=== PATIENT | female | born 1970 | race Hispanic/Latino ===

== ENCOUNTER → 2018-05-06 | Outpatient (CLI) | payer BC ==
--- NOTE | 2018-05-06 18:04 | Diagnostic Imaging Report ---
Solid-phase gastric emptying study Reason for examination: 47 F with post-prandial abdominal pin The protocol used for this study is based on the Consensus Recommendations for Gastric Scintigraphy by the [place] [employer] Society and the Society of Nuclear Medicine. Clinical information: The patient is not diabetic. The patient has not had prior gastrointestinal surgery. The patient is not on any medications expected to affect gastric motility. The patient has been fasting for at least 6 hours prior to this exam. Radiopharmaceutical: Tc-99m sulfur colloid 1 mCi Report: The radiopharmaceutical was added to 1/2 cup egg whites that were then prepared and served with 2 pieces of white bread toasted, 30 grams of jam and 4 ounces of water. The patient took the meal orally without difficulty. Images were obtained of the abdomen in the anterior and posterior projections at 10 minutes post the meal and at 1, 2, 3, and 4 hours. Uptake was determined from the geometric mean of the anterior and posterior counts and the counts were corrected for decay of the radiolabel. The percent gastric retention of the labeled meal at: 1 hour was 65% (normal 30-90%) 2 hours was 45% (normal <60%) 3 hours was 28% (normal <30%) 4 hours was 2% (normal <10%) Impression: Normal gastric emptying pattern. The findings do not support the clinical diagnosis of gastroparesis. Signed by: Dr. Alicja Gonzales M.D. on 05/06/2018 6:01 PM
== END ==
LOC: NM 07:44
PROVIDERS: ATTEND Internal Medicine Gastroenterology
DX: R10.12 Left upper quadrant pain (principal); R14.0 Abdominal distension (gaseous); I10 Essential (primary) hypertension; E66.9 Obesity, unspecified; Z71.3 Dietary counseling and surveillance
CPT/HCPCS: 78264; A9541

== ENCOUNTER 2020-03-05 22:57 | Emergency (ER) | payer BC, OTHER ==
[~2020-03-05] VITALS: Ht 172.7 cm; Wt 90.7 kg
--- OUTSIDE RECORDS SUMMARY | 2020-03-05 22:59 | XMS REPORT | Clinical Summary ---
Author Author [facility] ict Organization [facility] ict Address Unknown Phone Unavailable Care Team Providers Care City Bus Driver Name Role Phone PCP Unavailable Allergies Comments Active Allergy Reactions Severity Noted Date Patient developed redness of head, face, neck, and chest. Patient also developed swelling of the lips. Vancomycin Hives, High 02/18/2014 Swelling, Palpitations Medications End Date Status Medication Sig Dispensed Refills Start Date Active ibuprofen (MOTRIN) 800 mg Take 1 tablet 60 tablet 3 tabletIndications: Status by mouth 5 post hysterectomy, every 8 hours Bilateral knee pain as needed for Pain. Active budesonide-formoterol Inhale 2 Puff 10.2 g 3 (SYMBICORT HFA) 80-4.5 by mouth 2 5 mcg/actuation times daily. inhalerIndications: Asthma, mild intermittent, uncomplicated Active albuterol (VENTOLIN Inhale 2 6.7 g 3 HFA,PROVENTIL HFA,PROAIR Puffs by 5 HFA) 90 mcg/actuation mouth 4 times inhalerIndications: daily as Asthma, mild needed for intermittent, Wheezing. uncomplicated Active pravastatin (PRAVACHOL) Take 1 tablet 90 tablet 1 40 mg tabletIndications: by mouth at 6 Mixed hyperlipidemia bedtime nightly. Active omeprazole (PRILOSEC) 20 Take 1 90 capsule 3 0 mg delayed release capsule by 6 capsuleIndications: mouth daily. Gastroesophageal reflux disease, esophagitis presence not specified Active acetaminophen-codeine Take 1 tablet 60 tablet 0 (TYLENOL/CODEINE #3) by mouth 6 300-30 mg per every 4 hours tabletIndications: as needed for Nonintractable headache, Pain. unspecified chronicity pattern, unspecified headache type Active mesalamine (LIALDA) 1.2 Take 2 15 tablet 0 gram delayed release tablets by 6 tabletIndications: Lower mouth daily abdominal pain (with breakfast). Active buPROPion (WELLBUTRIN XL) Take 1 tablet 90 tablet 1 300 mg extended release by mouth at 6 tabletIndications: MDD bedtime (major depressive nightly disorder), recurrent, in full remission Active hydrOXYzine (ATARAX) 50 Take 1 tablet 90 tablet 1 mg tabletIndications: MDD by mouth 6 (major depressive nightly at disorder), recurrent, in bedtime as full remission needed (insomnia). Active Problems Problem Noted Date Essential hypertension 05/12/2015 Hyperopia with astigmatism and presbyopia 05/18/2014 Glaucoma suspect 05/18/2014 Keratitis, superficial, punctate 05/18/2014 Status post hysterectomy 10/10/2013 Asthma 10/08/2009 Allergic rhinitis, cause unspecified 12/11/2006 Overview: Asthma with daily occurrences with noct urnal coughing. Needs peak flow meter for thrice daily testing & recording! Nonintractable headache Diverticulitis of large intestine witho ut perforation or abscess without bleeding Lower abdominal pain Immunizations Name Administration Dates Next Due Influenza Vaccine 06/22/2014, 06/27/2013, 09/23/2009, 08/22/2007 PPV 23 Pneumococcal 02/19/2014 Polysaccaride Tdap Tetanus, diphtheria, 04/29/2013 acellular pertussis Vaccine Family History Medical History Relation Name Comments Diabetes Maternal Grandmother Hypertension Maternal Grandmother Diabetes Mother Hypertension Mother Lipids Mother Other denies fam hx of CAD, strok e Relation Name Status Comments Brother Alive X4 Father Alive Maternal Grandmother Mother Alive Sister Alive Son Alive X3 Social History Date Tobacco Use Types Packs/Day Years Used Never Smoker Smokeless Tobacco: Never Used Tobacco Cessation: Counseling Given: Yes Drinks/Week oz/Week Comments Alcohol Use No Sex Assigned at Date Recorded Not on file Industry Job Start Date Occupation Not on file Not on file Not on file Travel End Travel History Travel Start No recent travel history available. Last Filed Vital Signs Not on file Plan of Treatment Health Maintenance Due Date Last Done Comments Breast Cancer Scrn 07/05/2016 07/05/2015, 014, 06/17/2013 (Yearly) Colorectal Cancer Scrn 2018 Annual (FIT/FOBT) Age 50 to 75 Results Not on fileafter 03/05/2019 Advance Directives Date Inactivated Comments Code Status Date Activated 02/19/2014 3:26 PM Full Code 02/17/2014 10:19 PM 10/10/2013 7:01 PM Full Code 10/09/2013 5:06 PM
--- OUTSIDE RECORDS SUMMARY | 2020-03-05 22:59 | XMS REPORT | Clinical Summary ---
Author Author [facility] Organization [facility] Address Unknown Phone Unavailable Care Team Providers Care Electronics Engineering Professor Name Role Phone Leon Lopez MD PCP Allergies Comments Active Allergy Reactions Severity Noted Date Vancomycin Rash Low 06/15/2017 Medications End Date Status Medication Sig Dispensed Refills Start Date Active losartan-hydrochlorothiaz Take 1 tablet 0 cuong (HYZAAR) 100-12.5 mg by mouth per tablet daily. Active levothyroxine (SYNTHROID, Take 75 mcg 0 LEVOXYL) 75 mcg tablet by mouth every morning. Active amLODIPine (NORVASC) 10 Take 10 mg by 0 mg tablet mouth daily. Active prochlorperazine Take 1 tablet 15 tablet 0 01 (COMPAZINE) 10 MG tablet (10 mg total) 7 by mouth every 8 (eight) hours as needed for nausea or vomiting (headache) for up to 15 doses. Active amitriptyline (ELAVIL) 10 Take 10 mg by 0 MG tablet mouth nightly. Active diazePAM (VALIUM) 2 MG Take 2 mg by 0 tablet mouth every 6 (six) hours as needed for anxiety. Active cloZAPine (CLOZARIL) 25 Take 25 mg by 0 MG tablet mouth daily. Active perphenazine 2 MG tablet Take 2 mg by 0 mouth 2 (two) times a day. 08/11/2019 naproxen (NAPROSYN) 500 Take 1 tablet 28 tablet 0 MG tablet (500 mg 9 total) by mouth 2 (two) times a day with meals for 14 days. 08/11/2019 omeprazole (PriLOSEC) 20 Take 2 28 capsule 0 1 201 MG capsule capsules (40 9 mg total) by mouth daily for 14 days. 08/07/2019 cyclobenzaprine Take 1 tablet 20 tablet 0 07/28/20 1 (FLEXERIL) 10 mg tablet (10 mg total) 9 by mouth 3 (three) times a day as needed for muscle spasms for up to 10 days. Active Problems Not on file Encounters Care Team Description Date Type Specialty Michael Campbell MD Acute midline low back pain with right-s ided sciatica (Primary Dx) 07/28/2019 Emergency Emergency Medicine after 03/05/2019 Social History Date Tobacco Use Types Packs/Day Years Used Never Smoker Smokeless Tobacco: Never Used Drinks/Week oz/Week Comments Alcohol Use No Sex Assigned at Date Recorded Not on file Industry Job Start Date Occupation Not on file Not on file Not on file Travel End Travel History Travel Start No recent travel history available. Last Filed Vital Signs Reading Time Taken Comments Vital Sign 128/76 07/28/2019 6:42 PM DEVICE TEST ENGINEER Blood Pressure 85 07/28/2019 6:42 PM DEVICE TEST ENGINEER Pulse 36.5 C (97.7 F) 07/28/2019 6:42 PM DEVICE TEST ENGINEER Temperature 20 07/28/2019 6:42 PM DEVICE TEST ENGINEER Respiratory Rate 97% 07/28/2019 6:42 PM DEVICE TEST ENGINEER Oxygen Saturation - - Inhaled Oxygen Concentration 107 kg (235 lb) 07/28/2019 6:42 PM DEVICE TEST ENGINEER Weight 167.6 cm (5' 6") 07/28/2019 6:42 PM DEVICE TEST ENGINEER Height 37.93 07/28/2019 6:42 PM DEVICE TEST ENGINEER Body Mass Index Plan of Treatment Health Maintenance Due Date Last Done Comments CERVICAL CANCER SCREENING 1989 BREAST CANCER SCREENING 2018 COLONOSCOPY SCREENING 2018 SHINGLES VACCINES (#1) 2018 INFLUENZA VACCINE 04/24/2020 Procedures Comments Procedure Name Priority Date/Time Associated Diag nosis ED REFERRAL TO [place] Routine 07/28/2019 RASTAFARIAN PHYSICIAN 8:39 PM DEVICE TEST ENGINEER ORGANIZATION CT LUMBAR SPINE WO STAT 07/28/2019 CONTRAST 8:06 PM DEVICE TEST ENGINEER ESTIMATED GFR STAT 07/28/2019 7:30 PM DEVICE TEST ENGINEER URINALYSIS SCREEN AND STAT 07/28/2019 MICROSCOPY, WITH REFLEX 7:30 PM DEVICE TEST ENGINEER TO CULTURE BASIC METABOLIC PANEL STAT 07/28/2019 7:30 PM DEVICE TEST ENGINEER HC COMPLETE BLD COUNT STAT 07/28/2019 W/AUTO DIFF 7:30 PM DEVICE TEST ENGINEER URINE CULTURE STAT 07/28/2019 7:30 PM DEVICE TEST ENGINEER after 03/05/2019 Results * CT Lumbar Spine Wo Contrast (07/28/2019 8:06 PM DEVICE TEST ENGINEER) Specimen Narrative Performed At EXAMINATION: CT LUMBAR SPINE WO CONTRAST RENETTA Abdiaziz CLINICAL HISTORY: low back trauma 9 w ks ago mid back pain R thight calf radiation. COMPARISON: CT abdomen pelvis 01/16/20 TECHNIQUE: Noncontrast lumbar spinal CT with multiplanar reconstruction performed using radiation dose reductio n techniques. Technical factors are evaluated and adjusted to ensure approp riate moderation of exposure. Automated dose management technology is applied to adjust radiation exposure while achieving a diagnostic quality image. FINDINGS: Transitional vertebrae suspected with s acralization of L5 with osseous bridging of the transverse processes with the sa lu T12 ribs. The last functional disc is presumed to be L5-S1. No evidence of acute fracture, subluxation, or dislocation. Normal lumbar lordosis and alignment. Vertebra l body heights are preserved. No evidence of paraspinal hematoma. No significant spondylosis is appreciat ed. Intervertebral disc spaces are relatively preserved other than the lum bosacral transitional vertebrae. Mild concentric disc bulging L2-L5. Mild tani ateral sacroiliac joint osteoarthritis. Visualized paraspinal soft tissues are unremarkable. Lobulated right ovary measuring up to 2.9 cm is nonspecific. A few scattered colonic diverticula without diverticulitis. IMPRESSION: No CT evidence for acute osseous lumbar spinal abnormality. [facility]-[id number] Procedure Note Interface, Radiology Results Incoming - 07/28/2019 8:14 PM DEVICE TEST ENGINEER EXAMINATION: CT LUMBAR SPINE WO CONTRAST CLINICAL HISTORY: low back trauma 9 wks ago mid back pain R thight calf radiation. COMPARISON: CT abdomen pelvis 01/15/2018 TECHNIQUE: Noncontrast lumbar spinal CT with multiplanar reconstruction performed using radiation dose reduction techniques. Technical factors are evaluated and adjusted to ensure appropriate moderation of exposure. Automated dose management technology is applied to adjust radiation exposure while achieving a diagnostic quality image. FINDINGS: Transitional vertebrae suspected with sacralization of L5 with osseous bridging of the transverse processes with the sacrum T12 ribs. The last functional disc is presumed to be L5-S1. No evidence of acute fracture, subluxation, or dislocation. Normal lumbar lordosis and alignment. Vertebral body heights are preserved. No evidence of paraspinal hematoma. No significant spondylosis is appreciated. Intervertebral disc spaces are relatively preserved other than the lumbosacral transitional vertebrae. Mild concentric disc bulging L2-L5. Mild bilateral sacroiliac joint osteoarthritis. Visualized paraspinal soft tissues are unremarkable. Lobulated right ovary measuring up to 2.9 cm is nonspecific. A few scattered colonic diverticula without diverticulitis. IMPRESSION: No CT evidence for acute osseous lumbar spinal abnormality. [facility]-[id number] Performing Organization Address City/[facility] Ph one Number [facility] [address] [place] [address] * Urinalysis screen and microscopy, with reflex to culture (07/28/2019 7:30 PM DEVICE TEST ENGINEER) Specimen site Clean catch [facility] Color, UA Straw [facility] Appearance, UA Clear [facility] Specific 1.004 1.001 - 1.035 [place] gravity, UA [facility] pH, UA 6.0 5.0 - 8.5 [facility] Protein, UA Negative Negative [facility] Glucose, UA Negative Negative [facility] Ketones, UA Negative Negative [facility] Bilirubin, UA Negative Negative [facility] Blood, UA Small (A) Negative [facility] Nitrite, UA Negative Negative [facility] Urobilinogen, Negative <2.0 [facility] Leukocyte Negative Negative [place] esterase, UA [facility] Epithelial Moderate Few /HPF [place] cells, UA [facility] WBC, UA 0-5 0 - 4 /HPF [facility] RBC, UA 0-5 0 - 5 /HPF [facility] Bacteria, UA Few None seen [facility] Yeast, UA None seen [facility] Yeast with None seen [place] [facility] Specimen Urine Performing Organization Address City/[facility] Ph one Number [facility] [place] [place] [id number] [place] [address] [place], [place] [address] PATHOLOGY AND GENOMIC MEDICINE [address] [place] [address] [facility] * Estimated GFR (07/28/2019 7:30 PM DEVICE TEST ENGINEER) Estimated GFR >=90 mL/min/1.73 m2 [place] Comment: [facility] Interpretation G1 >=90 Normal or high G2 60-89 Mildly decreased G3a 45-59 Mildly to moderately decreased G3b 30-44 Moderately to severely decreased G4 15-29 Severely decreased G5 <15 Kidney failure The eGFR was calculated using the Chronic Kidney Disease Epidemiology Collaboration (CKD-EPI) equation. Interpretation is based on recommendations of the National Kidney Foundation-Kidney Disease Outcomes Quality Initiative (NKF-KDOQI) published in 2014. Specimen Plasma specimen Performing Organization Address City/State/[facility] Ph [place] [address] [place], [place] [address] PATHOLOGY AND GENOMIC MEDICINE [facility] [address] [place] [address] [facility] * CBC with platelet and differential (07/28/2019 7:30 PM DEVICE TEST ENGINEER) Pathologist [facility] WBC 8.47 4.50 - 11.00 k/uL [facility] RBC 4.81 4.20 - 5.50 m/uL [facility] HGB 14.5 12.0 - 16.0 g/dL [facility] HCT 42.2 37.0 - 47.0 % [facility] MCV 87.7 82.0 - 100.0 fL [facility] MCH 30.1 27.0 - 34.0 pg [facility] MCHC 34.4 31.0 - 37.0 g/dL [facility] RDW - SD 40.4 37.0 - 55.0 fL [facility] MPV 11.0 8.8 - 13.2 fL [facility] Platelet count 236 150 - 400 k/uL [facility] Nucleated RBC 0.00 /100 WBC [facility] Neutrophils 51.2 39.0 - 69.0 % [facility] Lymphocytes 39.3 25.0 - 45.0 % [facility] Monocytes 7.4 0.0 - 10.0 % [facility] Eosinophils 1.4 0.0 - 5.0 % [facility] Basophils 0.5 0.0 - 1.0 % [facility] Specimen Blood Performing Organization Address City/[facility] Ph one Number [facility] [place] [address] [place], [place] [address] PATHOLOGY AND GENOMIC MEDICINE [facility] [address] [place] [address] * Urine culture (07/28/2019 7:30 PM DEVICE TEST ENGINEER) Urine culture SEE COMMENTComment: [place] Bacteriuria screen negative. [facility] Specimen Urine Performing Organization Address [facility] Ph one Number [facility] [place] [address] [place], [place] [address] PATHOLOGY AND GENOMIC MEDICINE [facility] [id number] [place] [address] * Basic metabolic panel (07/28/2019 7:30 PM DEVICE TEST ENGINEER) Sodium 141 135 - 148 mEq/L [facility] Potassium 3.5 3.5 - 5.0 mEq/L [facility] Chloride 102 98 - 112 mEq/L [facility] CO2 22 (L) 24 - 31 mEq/L [facility] Anion gap 17@ANIO (H) 7 - 15 mEq/L [facility] BUN 11 6 - 20 mg/dL [facility] Creatinine 0.70 0.50 - 0.90 mg/dL [facility] Glucose 118 (H) 65 - 99 mg/dL [facility] Calcium 10.1 8.3 - 10.2 mg/dL [facility] Specimen Plasma specimen Performing Organization Address City/[facility] Ph one Number [facility] [place] [address] [address] 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
--- OUTSIDE RECORDS SUMMARY | 2020-03-05 23:00 | XMS REPORT | Continuity of Care Document ---
Author Author [facility] t Organization [facility] Address [address] [place] [address] Phone Unavailable Care Team Providers Care Lace Roller Operator Name Role Phone John TEMPLE, Charles PCP Liza Kaplan MD, Reddy Rodriguez Attphys Candelario BROOKS Attphys Unavailable Payers Payer Name Policy Type Policy Number Effective Date Expiration Date S naya BCBSBCBS CHOICE PPO/FEDERAL EMPL PPOxxxxxxxxxxxx2016-Pre sentPPO xxxxxxxxxxxx 2017 00:00:00 [facility] Problems Condition Name Condition Details Condition Category Status Onset Date Resolution Date Last Treatment Date Treating Clinician Comments Source Essential hypertension Essential hypertension Disease Active 2015-05-12 00:00:00 [facility] Hyperopia with astigmatism and presbyopia Hyperopia wi th astigmatism and presbyopia Disease Active 2014-05-18 00:00:00 H arrInkling Glaucoma suspect Glaucoma suspect Disease Active 2014-05-18 00:00:00 [facility]o [facility] Keratitis, superficial, punctate Keratitis, superficial, punctat e Disease Active 2014-05-18 00:00:00 [facility] Status post hysterectomy Status post hysterectomy Disease Acti ve 2013-10-10 00:00:00 [facility] Asthma Asthma Disease Active 2009-10-08 00:00:00 [facility] Allergic rhinitis, cause unspecified Allergic rhinitis, caus e unspecified Disease Active 2006-12-11 00:00:00 Overv iew: Asthma with daily occurrences with nocturnal coughing.Needs peak flow meter for thrice daily testing & recording! [facility] Nonintractable headache Nonintractable headache Disease Active [facility] Diverticulitis of large intestine withou t perforation or abscess without bleeding Diverticulitis of large intestine withou t perforation or abscess without bleeding Disease Active [facility] Lower abdominal pain Lower abdominal pain Disease Active [facility] Allergies, Adverse Reactions, Alerts Allergy Name Allergy Type Status Severity Reaction(s) Onset Date Inacti ve Date Treating Clinician Comments Source vancomycin DA Active SV 2019-08-29 00:00:00 [facility] No Known Allergies DA Active U 2019-06-27 00:00:00 [facility] Vancomycin Propensity to adverse reactions to drug Active Rash 2017-06-15 00:00:00 Jimmy lamb Vancomycin Propensity to adverse reactions to drug Active Hives, Swelling, Palpitations 2014-02-18 00:00:00 Patient deve loped redness of head, face, neck, and chest. Patient also developed swelling of the lips. [facility] No Known Drug Intolerances DA Active U 2009-11-26 00:00:0 0 [facility] Family History Family Member Diagnosis Comments Start Date Stop Date Source Maternal grandmother Diabetes [facility] Maternal grandmother Hypertension [facility] Natural mother Diabetes [facility] Natural mother Hypertension [facility] Natural mother Lipids [facility] unknown Other [facility] Social History Social Habit Start Date Stop Date Quantity Comments Source Sex Assigned [facility] Alcohol intake 2015-12-31 00:00:00 2015-12-31 00:00:00 [facility] Smoking Status Start Date Stop Date Source Never smoker [facility] Medications Ordered Medication Name Filled Medication Name Start Date Stop Da te Current Medication? Ordering Clinician Indication Dosage Frequency Signature (SIG) Comments Components Source naproxen (NAPROSYN) 500 MG tablet 2019-07-28 00:00:00 2018 23:59:00 No 500mg Q.5D Take 1 tablet (5 00 mg total) by mouth 2 (two) times a day with meals for 14 days. Jimmy Amaya omeprazole (PriLOSEC) 20 MG capsule 2019-07-28 00:00:0 0 2019-08-11 23:59:00 No 40mg QD Take 2 capsules (40 mg total) by mouth d aily for 14 days. Jimmy Amaya cyclobenzaprine (FLEXERIL) 10 mg tablet 00:00:00 2019-08-07 23:59:00 No 10mg Q.[id number] Ta ke 1 tablet (10 mg total) by mouth 3 (three) times a day as needed for muscle spasms for up to 10 days. Jimmy Amaya amitriptyline (ELAVIL) 10 MG tablet 2017-09-30 02:47:24 Yes 10mg QD Take 10 mg by mouth nightly. Jimmy lamb diazePAM (VALIUM) 2 MG tablet 2017-09-30 02:47:24 Yes 2mg Q6H Take 2 mg by mouth every 6 (six) hours as needed for anxiety. Jimmy Amaya cloZAPine (CLOZARIL) 25 MG tablet 2017-09-30 02:47:24 Yes 25mg QD Take 25 mg by mouth daily. Jimmy Amaya perphenazine 2 MG tablet 2017-09-30 02:47:24 Yes 2mg Q.5D Take 2 mg by mouth 2 (two) times a day. Jimmy ramirez losartan-hydrochlorothiazide (HYZAAR) 100-12.5 mg per tablet 2017-06-15 23:08:55 Yes 1{tbl} QD Take 1 tablet by mouth daily. Jimmy Amaya levothyroxine (SYNTHROID, LEVOXYL) 75 mcg tablet 2017-06-15 23:08:55 Yes 75ug QD Take 75 mcg by mouth every morning. Jimmy Amaya amLODIPine (NORVASC) 10 mg tablet 2017-06-15 23:08:55 Yes 10mg QD Take 10 mg by mouth daily. Jimmy Amaya prochlorperazine (COMPAZINE) 10 MG tablet 2017-06-15 00:00:00 Yes 10mg Q8H Take 1 tablet (10 mg total) by mouth belinda ry 8 (eight) hours as needed for nausea or vomiting (headache) for up to 15 doses. Jimmy Amaya buPROPion (WELLBUTRIN XL) 300 mg extended release tablet 2015-12-31 00:00:00 Yes MDD (major depressive disorder), recurrent, in full remission 300mg Take 1 tablet by mouth at bedtime nightly [facility] hydrOXYzine (ATARAX) 50 mg tablet 2015-12-31 00:00:00 Yes MDD (major depressive disorder), recurrent, in full remission 50mg Take 1 tablet by mouth nightly at bedtime as needed (insomnia). [facility] mesalamine (LIALDA) 1.2 gram delayed release tablet 12-20 00:00:00 Yes Lower abdominal pain 2.4g QD Take 2 tablets by mouth da tom (with breakfast). [facility] acetaminophen-codeine (TYLENOL/CODEINE #3) 300-30 mg per tab let 2015-12-19 00:00:00 Yes Nonintractable h eadache, unspecified chronicity pattern, unspecified headache type 1{tbl} Take 1 tablet by mouth every 4 hours as needed for Pain. [facility] pravastatin (PRAVACHOL) 40 mg tablet 2015-11-03 00:00:00 Yes Mixed hyperlipidemia 40mg Take 1 tablet by mouth at bedtime nightly. [facility] omeprazole (PRILOSEC) 20 mg delayed release capsule 11-03 00:00:00 Yes Gastroesophageal reflux disease, esophagitis presence not specif ied 20mg QD Take 1 capsule by mouth daily. [facility] alth ibuprofen (MOTRIN) 800 mg tablet 2015-05-11 00:00:00 Yes Bilateral knee pain 800mg Take 1 tablet by mouth every 8 hours as needed for Pain. [facility] budesonide-formoterol (SYMBICORT HFA) 80-4.5 mcg/actuation i nhaler 2015-05-11 00:00:00 Yes Asthma, mild intermittent, uncomplicated 1{puff} Q.5D Inhale 2 Puff by mouth 2 times daily. [facility] albuterol (VENTOLIN HFA,PROVENTIL HFA,PROAIR HFA) 90 mcg/act uation inhaler 2015-05-11 00:00:00 Yes Asthma, mild intermittent, unc omplicated 2{puff} Inhale 2 Puffs by mouth 4 times daily as needed for Wheezing. [facility] Immunizations Ordered Immunization Name Filled Immunization Name Date Status Comments Source Influenza Vaccine 2014-06-22 00:00:00 Completed [facility] PPV 23 Pneumococcal Polysaccaride 2014-02-19 00:00:00 Comp leted [facility] Influenza Vaccine 2013-06-27 00:00:00 Completed [facility] Tdap Tetanus, diphtheria, acellular pertussis Vaccine 2013-04-29 00:00:00 Completed [facility] Influenza Vaccine 2009-09-23 00:00:00 Completed [facility] Influenza Vaccine 2006-08-22 00:00:00 Completed [facility] Vital Signs Vital Name Observation Time Observation Value Comments Source Systolic blood pressure 2019-07-28 18:42:00 128 mm[Hg] Jimmy Amaya Diastolic blood pressure 2019-07-28 18:42:00 76 mm[Hg] Jimmy Amaya Heart rate 2019-07-28 18:42:00 85 /min Jimmy Amaya Body temperature 2019-07-28 18:42:00 36.5 Ivory [facility] Respiratory rate 2019-07-28 18:42:00 20 /min [place] [facility] Body height 2019-07-28 18:42:00 167.6 cm Jimmy Amaya Body weight 2019-07-28 18:42:00 106.595 kg Jimmy Amaya BMI 2019-07-28 18:42:00 37.93 kg/m2 Jimmy Amaya Oxygen saturation in Arterial blood by Pulse oximetry 2018-09 18:42:00 97 /min Jimmy Amaya Procedures Procedure Date / Time Performed Performing Clinician [facility] ED REFERRAL TO JIMMY AMAYA PHYSICIAN ORGANIZATION 2018 20:39:[address] LUMBAR SPINE WO CONTRAST 2019-07-28 20:06:09 Linnette Campbell URINE CULTURE 2019-07-28 19:30:00 Michael Campbell HC COMPLETE BLD COUNT W/AUTO DIFF 2019-07-28 19:30:00 Michael Campbell BASIC METABOLIC PANEL 2019-07-28 19:30:00 Michael Campbell URINALYSIS SCREEN AND MICROSCOPY, WITH REFLEX TO CULTURE 201 06-04-04 19:30:00 Michael Campbell ESTIMATED GFR 2019-07-28 19:30:00 Michael Campbell Plan of Care Planned Activity Planned Date Details Comments Source Future Scheduled Test 2020-04-24 00:00:00 INFLUENZA VACCINE [code = INFLUENZA VACCINE] [facility] Scheduled Test 2018 00:00:00 BREAST CANCER SCRE ENING [code = BREAST CANCER SCREENING] [facility] Scheduled Test 2018 00:00:00 COLONOSCOPY SCREEN ING [code = COLONOSCOPY SCREENING] [facility] Scheduled Test 2018 00:00:00 SHINGLES VACCINES (#1) [code = SHINGLES VACCINES (#1)] [facility] Scheduled Test 2018 00:00:00 Colorectal Cancer Scrn Annual (FIT/FOBT) Age 50 to 75 [code = Colorectal Cancer Scrn Annual (FIT/FOBT) Age 50 to 75] [facility] Scheduled Test 2016-07-05 00:00:00 Breast Cancer Scrn (Yearly) [code = Breast Cancer Scrn (Yearly)] [facility] Scheduled Test 1989 00:00:00 Screening for tegan gnant neoplasm of cervix (procedure) [code = 082568186] [facility] t Results Test Description Test Time Test Comments Results Result Comments Source DIAG MAMM RIGHT SHALA CAD DIGITAL 2019-11-27 16:12:47 - DIAG MAMM RIGHT SHALA CAD DIGITALUNILATERAL RIGHT DIGITAL DIAGNOSTIC MAMMOGRAM 3D/2D WITH CAD: 11/27/2019CLINICAL: Abnormal Mammogram. Digital breast tomosynthesis was performed in addition to routine CC and MLO views. Current mammographic images were evaluated by either a [employer] M-Vu or a [employer] ImageChecker CAD (computer aided detection system). Comparison is made to exams dated 11/07/2019 mammo gram, 08/02/2018 mammogram, and 07/02/2017 mammogram - [facility]-. The tissue of the right breast is heterogeneously dense. This may lower the sensitivity of mammography. Previously described asymmetry persists however the appearance is stable since 2017, benign. Multiple oval, circumscribed, low- density masses previously proven to be simple cysts, benign. No suspicious mass, architectural distortion, malignant type calcification, or lymph node abnormality detected. INCOMPLETE: ADDITIONAL IMAGING EVALUATION NEEDEDThere is no mammographic evidence of malignancy. Survey right breast ultrasound to follow.- BREAST ULTRASOUND RIGHTULTRASOUND OF RIGHT BREAST: 11/27/2019Comparison is made to exams dated 11/07/2019 mammogram, 08/02/2018 mammogram, and [facility]. Color flow and real-time ultrasound of the right breast were performed. Villarreal scale images of the real-time examination were reviewed. The breast tissue has heterogenous background echotexture. Survey right breast ultrasound demonstrates multiple simple cysts but no suspicious sonographic abnormality. No axillary lymphadenopathy.IMPRESSION: BENIGN There is no sonographic evidence of malignancy. Resume annual screening mammography in one year. Parish Collazo M.D. ss/:11/27/2019 16:12:47 Entry: - 12/04/2019 14:07:09Imaging Technologist: Gala Norwood , [facility] sent: BIRADS 1-2 Combo FU Letter Mammogram BI- RADS: 0 Incomplete: Additional Imaging Evaluation Needed Ultrasound BI-RADS: 2 Benign BREAST ULTRASOUND RIGHT 2019-11-27 16:12:47 - D IAG MAMM RIGHT SHALA CAD DIGITALUNILATERAL RIGHT DIGITAL DIAGNOSTIC MAMMOGRAM 3D/2D WITH CAD: 11/27/2019CLINICAL: Abnormal Mammogram. Digital breast tomosynthesis was performed in addition to routine CC and MLO views. Current mammographic images were evaluated by either a [employer] M-Vu or a [employer] ImageChecker CAD (computer aided detection system). Comparison is made to exams dated 11/07/2019 mammo gram, 08/02/2018 mammogram, and 07/02/2017 [facility]. The tissue of the right breast is heterogeneously dense. This may lower the sensitivity of mammography. Previously described asymmetry persists however the appearance is stable since 2017, benign. Multiple oval, circumscribed, low- density masses previously proven to be simple cysts, benign. No suspicious mass, architectural distortion, malignant type calcification, or lymph node abnormality detected. INCOMPLETE: ADDITIONAL IMAGING EVALUATION NEEDEDThere is no mammographic evidence of malignancy. Survey right breast ultrasound to follow.- BREAST ULTRASOUND RIGHTULTRASOUND OF RIGHT BREAST: 11/27/2019Comparison is made to exams dated 11/07/2019 mammogram, 08/02/2018 mammogram, and 07/02/2017 [facility]. Color flow and real-time ultrasound of the right breast were performed. Villarreal scale images of the real-time examination were reviewed. The breast tissue has heterogenous background echotexture. Survey right breast ultrasound demonstrates multiple simple cysts but no suspicious sonographic abnormality. No axillary lymphadenopathy.IMPRESSION: BENIGN There is no sonographic evidence of malignancy. Resume annual screening mammography in one year. Parish Collazo M.D. ss/:11/27/2019 16:12:47 Entry: - 12/04/2019 14:07:09Imaging Technologist: Gala TRENT, [facility]-letter sent: BIRADS 1-2 Combo FU Letter Mammogram BI- RADS: 0 Incomplete: Additional Imaging Evaluation Needed Ultrasound BI-RADS: 2 Benign SCR MAMM BILATERAL SHALA CAD DIGITAL 2019-11-10 13:31:57 - SCR MAMM BILATERAL SHALA CAD DIGITALBILATERAL DIGITAL SCREENING MAMMOGRAM 3D/2D WITH CAD: 11/07/2019CLINICAL: Asymptomatic. Digital breast tomosynthesis was performed in addition to routine CC and MLO views. Current mammographic images were evaluated by either a [employer] M-Vu or a [employer] CAD (computer aided detection system). Comparison is made to exams dated 08/02/2018 mammogram, 07/02 mammogram, and 2016 mammogram - [facility]-. The tissue of both breasts is heterogeneously dense. This may lower the sensitivity of mammography. A 15 mm asymmetry in the right lateral breast, approximately 6 cm from the nipple, only seen in the craniocaudal view.No suspicious mass, architectural distortion, malignant type calcification, or lymph node abnormality detected in the left breast. IMPRESSION: INCOMPLETE: ADDITIONAL IMAGING EVALUATION NEEDEDA 15 mm asymmetry in the right lateral breast, approximately 6 cm from the nipple, only seen in the craniocaudal view. Spot compression tomosynthesis and possible ultrasound are recommended at this time.Parish Collazo M.D. ss/:11/10/2019 13:31:57 Stock Unloader: Harleen TRENT [facility]-FWletter sent: Additional Imaging Mammogram BI-RADS: 0 Incomplete: Additional Imaging Evaluation Needed FALLOPIAN TUBE 2019-09-08 13:40:00 RUN DATE: 09/08/19 [facility] PAGE 1 RUN TIME: 1340 Specimen Inquiry RUN USER: INTERFACE PATIENT: KEEGAN MARTINEZ LOC: [facility] U #: [id number] AGE/SX: 49/F ROOM: RE09/04/19REG DR: Nhi Armas MD : 66 BED: DIS: STATUS: [facility] TLOC: SPEC #: [id number] RECD: 09/05/19 STATUS: ROSA REQ #: [id number] MAURICE: 09/04/19- SUBM DR: Nhi Armas MD ENTERED: 09/05/19 SP TYPE: FALL TUBE OTHR DR: Leon Lopez MD ORDERED: GROSS COPIES TO: Nhi Armas MD [address] [place] [address] Leon Lopez MD [address] [place] [address] PROCEDURES: GROSS (09/08/19-1302) TISSUES: FALLOPIAN TUBE, NOS - BILATERAL TUBES AND OVARIES CLINICAL HISTORY COLLECTION DATE: 09/09/19 OVARIAN CYST, PELVIC PAIN COMMENT Intradepartmental consultation: DMW. FINAL DIAGNOSIS Bilateral fallopian tubes and ovaries, bilateral salpingo-oophorectomy: LARGER OVARY, MULTIPLE BENIGN EPITHELIAL CYSTS AND AREA OF ADENOFIBROMATOUS CHANGE ORGANIZING HEMORRHAGIC FOLLICULAR CYST PRESENT SMALLER OVARY, OVARIAN PARENCHYMA WITH SURFACE EPITHELIAL INCLUSIONS AND FIBROFATTY SURFACE ADHESIONS BILATERAL FALLOPIAN TUBES, TRANSECTED FALLOPIAN TUBES WITH PARATUBAL CYSTS NEGATIVE FOR MALIGNANCY RRB/lisa D [id number] CONTINUED ON NEXT PAGE RUN DATE: 09/08/19 [facility] PAGE 2 RUN TIME: 1340 Specimen Inquiry RUN USER: INTERFACE SPEC #: [id number] PATIENT: KEEGAN MARTINEZ #[id number] (Continued) MACROSCOPIC The specimen is received in formalin, labeled with the patient's name, and identified as "bilateral fallopian tubes and ovaries". It consists of two ovaries which have adhesions on the surface and two fallopian tube segments with blunted ends. The larger ovary measures 2.8 x 2.6 x 2.7 cm. On cut section it contains a multiple smooth cyst with clear fluid within gelatinous material. The smaller ovary measures 2.5 x 2.3 x 1.8 cm. It has a more solid appearance on cut section. The dilated fallopian tube measures 3.0 x 2.5 x 1.2 cm and the remaining fallopian tube measures 3.7 cm in length by 0.5 cm in diameter. The dilated fallopian tube contains clear fluid. Section Code: 1A and 1B- samples of the larger ovary, 1C- samples of the smaller ovary, 1D- samples of the fallopian tubes. GROSS PERFORMED AT [facility] [address] [place] [address] [phone])[phone] MICROSCOPIC All of the stains, including any controls performed, stain appropriately. MICROSCOPIC PERFORMED AT [facility] [address] [place] [address] [phone])[phone] PERFORMING SITE Diagnosis performed at: [facility] [place] [address] [place] [address] Signed SIGNATURE ON FILE Isidro Gann MD 09/08/19 1340 END OF REPORT COMPREHENSIVE METABOLIC PANEL 2019-08-29 12:20:00 Test Item SODIUM (test code = NA) 141 mmol/L 136-145 N POTASSIUM (test code = K) 3.9 mmol/L 3.5-5.1 N CHLORIDE (test code = CL) 104.0 mmol/L 98-107 N CARBON DIOXIDE (test code = CO2) 30.0 mmol/L 21-32 N ANION GAP (test code = GAP) 10.9 10-20 N GLUCOSE (test code = GLU) 127 mg/dL 74-106 H BLOOD UREA NITROGEN (test code = BUN) 3 mg/dL 7-18 L GLOMERULAR FILTRATION RATE (test code = GFR) > 60 mL/min >=60 Estimated GFR by using Modified MDRD formula.Chronic kidney disease is defined as either kidney damageor GFR <60 mL/min/1.73 m2 for >3 months. CREATININE (test code = CREAT) 0.60 mg/dL 0.55-1.02 N Note change in reference range due to change in reagent. BUN/CREATININE RATIO (test code = BUN/CREA) 4.6 10-20 L TOTAL PROTEIN (test code = PROT) 7.8 gram/dL 6.4-8.2 N ALBUMIN (test code = ALB) 3.7 g/dL 3.4-5.0 N GLOBULIN (test code = GLOB) 4.1 gram/dL 2.7-4.2 N ALBUMIN/GLOBULIN RATIO (test code = A/G) 0.9 0.75-1.50 N CALCIUM (test code = CA) 9.6 mg/dL 8.5-10.1 N BILIRUBIN TOTAL (test code = BILT) 0.40 mg/dL 0.0-1.0 N SGOT/AST (test code = AST) 45 IUnit/L 15-37 H SGPT/ALT (test code = ALT) 64 IUnit/L 12-78 N ALKALINE PHOSPHATASE TOTAL (test code = ALKP) 82 IUnit/L 45-117 N Note change in reference range due to change in reagent. COMPREHENSIVE METABOLIC [id number] 11:53:00* Test Item Value Reference Range Interpretation Comments SODIUM (test code = NA) 141 mmol/L 136-145 N POTASSIUM (test code = K) 3.9 mmol/L 3.5-5.1 N CHLORIDE (test code = CL) 104.0 mmol/L 98-107 N CARBON DIOXIDE (test code = CO2) mmol/L 21-32 ANION GAP (test code = GAP) 10-20 GLUCOSE (test code = GLU) mg/dL 74-106 BLOOD UREA NITROGEN (test code = BUN) mg/dL 7-18 GLOMERULAR FILTRATION RATE (test code = GFR) mL/min >=60 CREATININE (test code = CREAT) mg/dL 0.55-1.02 BUN/CREATININE RATIO (test code = BUN/CREA) 10-20 TOTAL PROTEIN (test code = PROT) gram/dL 6.4-8.2 ALBUMIN (test code = ALB) g/dL 3.4-5.0 GLOBULIN (test code = GLOB) gram/dL 2.7-4.2 ALBUMIN/GLOBULIN RATIO (test code = A/G) 0.75-1.50 CALCIUM (test code = CA) mg/dL 8.5-10.1 BILIRUBIN TOTAL (test code = BILT) mg/dL 0.0-1.0 SGOT/AST (test code = AST) IUnit/L 15-37 SGPT/ALT (test code = ALT) IUnit/L 12-78 ALKALINE PHOSPHATASE TOTAL (test code = ALKP) IUnit/L 45-117 CBC W/AUTO [id number] 11:22:00* Test Item Value Reference Range Interpretation Comments WHITE BLOOD CELL (test code = WBC) 6.7 K/mm3 4.5-12.5 N RED BLOOD CELL (test code = RBC) 4.69 mill/mm3 3.7-5.2 N HEMOGLOBIN (test code = HGB) 14.0 gram/dL 11.5-15.5 N HEMATOCRIT (test code = HCT) 42.8 % 36.0-46.0 N MEAN CELL VOLUME (test code = MCV) 91.3 fL 80-98 N MEAN CELL HGB (test code = MCH) 29.9 picogram 27.0-33.0 N MEAN CELL HGB CONCETRATION (test code = MCHC) 32.7 gram/dL 33.0-36. 0 L RED CELL DISTRIBUTION WIDTH (test code = RDW) 13.5 % 11.6-16. 2 N RED CELL DISTRIBUTION WIDTH SD (test code = RDW-SD) 45.1 fL 37 .0-51.0 N PLATELET COUNT (test code = PLT) 215 K/mm3 150-450 N MEAN PLATELET VOLUME (test code = MPV) 10.9 fL 6.7-11.0 N NEUTROPHIL % (test code = NT%) 46.2 % 39.0-69.0 N IMMATURE GRANULOCYTE % (test code = IG%) 0.1 % 0.0-5.0 N LYMPHOCYTE % (test code = LY%) 40.1 % 25.0-55.0 N MONOCYTE % (test code = MO%) 11.0 % 0.0-10.0 H EOSINOPHIL % (test code = EO%) 2.2 % 0.0-5.0 N BASOPHIL % (test code = BA%) 0.4 % 0.0-1.0 N NUCLEATED RBC % (test code = NRBC%) 0.0 % 0-0 N NEUTROPHIL # (test code = NT#) 3.11 K/mm3 1.8-7.7 N IMMATURE GRANULOCYTE # (test code = IG#) 0.01 x10 3/uL 0-0.03 N LYMPHOCYTE # (test code = LY#) 2.70 K/mm3 1.0-5.0 N MONOCYTE # (test code = MO#) 0.74 K/mm3 0-0.8 N EOSINOPHIL # (test code = EO#) 0.15 K/mm3 0.0-0.5 N BASOPHIL # (test code = BA#) 0.03 K/mm3 0.0-0.2 N NUCLEATED RBC # (test code = NRBC#) 0.00 K/mm3 0.0-0.1 N MANUAL DIFF REQUIRED (test code = MDIFF) NO CBC W/AUTO [id number] 11:19:00* Test Item Value Reference Range Interpretation Comments WHITE BLOOD CELL (test code = WBC) K/mm3 4.5-12.5 RED BLOOD CELL (test code = RBC) mill/mm3 3.7-5.2 HEMOGLOBIN (test code = HGB) 14.0 gram/dL 11.5-15.5 N HEMATOCRIT (test code = HCT) 42.8 % 36.0-46.0 N MEAN CELL VOLUME (test code = MCV) fL 80-98 MEAN CELL HGB (test code = MCH) picogram 27.0-33.0 MEAN CELL HGB CONCETRATION (test code = MCHC) gram/dL 33.0-36. 0 RED CELL DISTRIBUTION WIDTH (test code = RDW) % 11.6-16. 2 RED CELL DISTRIBUTION WIDTH SD (test code = RDW-SD) fL 37 .0-51.0 PLATELET COUNT (test code = PLT) K/mm3 150-450 MEAN PLATELET VOLUME (test code = MPV) fL 6.7-11.0 NEUTROPHIL % (test code = NT%) % 39.0-69.0 IMMATURE GRANULOCYTE % (test code = IG%) % 0.0-5.0 LYMPHOCYTE % (test code = LY%) % 25.0-55.0 MONOCYTE % (test code = MO%) % 0.0-10.0 EOSINOPHIL % (test code = EO%) % 0.0-5.0 BASOPHIL % (test code = BA%) % 0.0-1.0 NEUTROPHIL # (test code = NT#) K/mm3 1.8-7.7 LYMPHOCYTE # (test code = LY#) K/mm3 1.0-5.0 MONOCYTE # (test code = MO#) K/mm3 0-0.8 EOSINOPHIL # (test code = EO#) K/mm3 0.0-0.5 BASOPHIL # (test code = BA#) K/mm3 0.0-0.2 CT Lumbar Spine Wo [id number] 20:11:46Hm Interface, Radiology Results 07/28/2019 8:14 PM CSTEXAMINATION: CT LUMBAR SPINE WO CONTRASTCLINICAL HISTORY: low back trauma 9 wks ago mid back pain R thight calf radiation.COMPARISON: CT abdomen pelvis 01/15/2018TECHNIQUE: Noncontrast lumbar spinal CT with multiplanar reconstruction performed using radiation dose reduction techniques. Technical factors are evaluated and adjusted to ensure appropriate moderation of exposure. 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 The last functional disc is presumed to be L5-S1. No evidence of acute fracture, sublu xation, or dislocation. Normal lumbar lordosis and alignment. Vertebral body hei ghts are preserved. No evidence of paraspinal hematoma.No significant spondylosi s is appreciated. Intervertebral disc spaces are relatively preserved other than the lumbosacral transitional vertebrae. Mild concentric disc bulging L2-L5. Mild bilateral sacroiliac joint osteoarthritis.Visualized paraspinal soft tissues are unremarkable. Lobulated right ovary measuring up to 2.9 cm is nonspecific. A few scattered colonic diverticula without diverticulitis. IMPRESSION:No CT evidence for acute osseous lumbar spinal abnormality.[facility]-[id number] MethodistBasic metabolic [id number] 20:08:12* Test Item Value Reference Range Interpretation Comments Sodium (test code = 2951-2) 141 135- 148 mEq/L Potassium (test code = 2823-3) 3.5 3.5- 5.0 mEq/L Chloride (test code = 2075-0) 102 98- 112 mEq/L CO2 (test code = 8-9) 22 24- 31 mEq/L L Anion gap (test code = 98572-6) 17@ANIO 7- 15 mEq/L H BUN (test code = 3094-0) 11 mg/dL 6-20 Creatinine (test code = 2160-0) 0.70 mg/dL 0.5-0.9 Glucose (test code = 2345-7) 118 mg/dL 65-99 H Calcium (test code = 45958-8) 10.1 mg/dL 8.3-10.2 Lab Interpretation (test code = 64246-2) Abnormal Marquez MethodistEstimated [id number] 20:08:12* Test Item Value Reference Range Interpretation Comments Estimated GFR (test code = 5488) >=90 mL/min/1.73 m2 Catergory Units InterpretationG1 >=90 Normal or highG2 60-89 Mildly lxdrvzkbqM8t 45-59 Mildly to moderately qfnltnjywZ8q 30-44 Moderately to severely decreasedG4 15-29 Severely decreasedG5 <15 Kidney failureThe eGFR was calculated using the Chronic Kidney Disease Epidemiology Collaboration (CKD-EPI) equation. Interpretation is based on recommendations of the National Kidney Foundation-Kidney Disease Outcomes Quality Initiative (NKF-KDOQI) published in 2014. Marquez MethodistUrine [id number] 19:50:52* Test Item Value Reference Range Interpretation Comments Urine culture (test code = 0945020) SEE COMMENT Bacteriuria screen negative. Marquez MethodistUrinalysis screen and microscopy, with reflex to culture 2019-07-28 19:50:50* Test Item Value Reference Range Interpretation Comments Specimen site (test code = 2590840) Clean catch Color, UA (test code = 5778-6) Straw Appearance, UA (test code = 5767-9) Clear Specific gravity, UA (test code = 5811-5) 1.004 1.001-1.035 pH, UA (test code = 5803-2) 6.0 5.0-8.5 Protein, UA (test code = 38142-2) Negative Negative Glucose, UA (test code = 65336-8) Negative Negative Ketones, UA (test code = 2514-8) Negative Negative Bilirubin, UA (test code = 5770-3) Negative Negative Blood, UA (test code = 5794-3) Small Negative A Nitrite, UA (test code = 5802-4) Negative Negative Urobilinogen, UA (test code = 77653-8) Negative <2.0 Leukocyte esterase, UA (test code = 5799-2) Negative Negative Epithelial cells, UA (test code = 5787-7) Moderate Few /HPF WBC, UA (test code = 5821-4) 0-5 0- 4 /HPF RBC, UA (test code = 05437-6) 0-5 0- 5 /HPF Bacteria, UA (test code = 47338-6) Few None seen Yeast, UA (test code = 72818-2) None seen Yeast with pseudohyphae, UA (test code = 23114-1) None seen Lab Interpretation (test code = 68094-0) Abnormal [facility] with platelet and omnglefbbdtz6309-96-16 19:49:47* Test Item Value Reference Range Interpretation Comments WBC (test code = 79533-6) 8.47 4.50- 11.00 k/uL RBC (test code = 40149-5) 4.81 m/uL 4.2-5.5 HGB (test code = 718-7) 14.5 g/dL 12-16 HCT (test code = 4544-3) 42.2 % 37-47 MCV (test code = 787-2) 87.7 fL 82-100 MCH (test code = 785-6) 30.1 pg 27-34 MCHC (test code = 786-4) 34.4 g/dL 31-37 RDW - SD (test code = 28944-0) 40.4 fL 37-55 MPV (test code = 27795-7) 11.0 fL 8.8-13.2 Platelet count (test code = 17122-9) 236 150- 400 k/uL Nucleated RBC (test code = 76813-2) 0.00 /100 WBC Neutrophils (test code = 70618-8) 51.2 % 39-69 Lymphocytes (test code = 10668-0) 39.3 % 25-45 Monocytes (test code = 57545-1) 7.4 % 0-10 Eosinophils (test code = 58818-7) 1.4 % 0-5 Basophils (test code = 53982-6) 0.5 % 0-1 Jimmy [id number] 10:50:00* Test Item Value Reference Range Interpretation Comments GLYCOSYLATED HEMOGLOBIN (HA1C) (test code = GLYHGB) 6.9 % HbA1 4. 8-6.0 H ESTIMATED AVERAGE GLUCOSE (test code = EAG) 151 MG/DL LIPID PROFILE (CORONARY RISK)2019-06-28 09:27:00* Test Item Value Reference Range Interpretation Comments TRIGLYCERIDES (test code = TRIG) 317 mg/dL 20-150 H CHOLESTEROL (test code = CHOL) 221 mg/dL 0-200 H CHOLESTEROL/HDL RATIO (test code = CHOLHDL) 5.0 RATIO 0-4.9 H RISK ASSOCIATED WITH CHOL/HDL RATIOS: Risk Male Female1/2 AVERAGE 3.43 3.27AVERAGE 4.97 4.442X AVERAGE 9.55 7.053X AVERAGE 23.39 11.04 REFERENCE VALUE IS RELATED TO RISK LEVELS ASRECOMMENDED BY THE GEETHA. HEART, LUNG, AND BLOOD INST. HDL CHOLESTEROL (test code = HDL) 40 mg/dL 40-60 N LIPOPROTEIN LDL (test code = LDL) 147 mg/dL 100-129 H RN PERSONNEL, CONTACT PHYSICIAN IMMEDIATELY IF THIS IS A STROKE, AMI OR CAROTID STENOSIS PATIENT WHEN THE LDL >100 (1ST OCCURENCE, THIS ADMISSION) Reference Interval: mg/dL mmol/L Optimal <100 <2.6Near/above optimal 100-129 2.6- 3.3Borderline High 130-159 3.4-4.1High 160-189 4.1-4.9Very High >=190 >=4.9========= This LDL result is a direct measurement.========= THYROID PROFILE W/[id number] 09:27:00* Test Item Value Reference Range Interpretation Comments T3 UPTAKE (test code = T3UP) 32.0 % 30.0-40.0 N T4 (THYROXINE) (test code = T4) 12.4 ug/dL 4.5-13.9 N T7 (FREE THYROXINE INDEX) (test code = T7) 3.96 FTI 1.3-5.1 N THYROID STIMULATING HORMONE (test code = TSH) 2.870 uIU/mL 0.36-3.7 4 N TSH REFERENCE RANGES: EUTHYROID: 0.35 - 4.3 mIU/mL HYPO : > 5.5 mIU/mL HYPER : < 0.35 mIU/mL [id number] 07:38:00* Test Item Value Reference Range Interpretation Comments TROPONIN-I (test code = TROPI) <0.015 ng/mL 0-0.045 N COMMENTS TO AUDIT INTERN: COLLECT 3 HOURS AFTER PREVIOUS [id number] 02:18:00* Test Item Value Reference Range Interpretation Comments TROPONIN-I (test code = TROPI) <0.015 ng/mL 0-0.045 N COMMENTS TO AUDIT INTERN: COLLECT 3 HOURS AFTER PREVIOUS SAMPLEBASIC METABOLIC [id number] 19:09:00* Test Item Value Reference Range Interpretation Comments SODIUM (test code = NA) 140 mmol/L 136-145 N POTASSIUM (test code = K) 3.5 mmol/L 3.5-5.1 N CHLORIDE (test code = CL) 102.0 mmol/L 98-107 N CARBON DIOXIDE (test code = CO2) 24.0 mmol/L 21-32 N ANION GAP (test code = GAP) 17.5 10-20 N GLUCOSE (test code = GLU) 147 mg/dL 74-106 H BLOOD UREA NITROGEN (test code = BUN) 11 mg/dL 7-18 N GLOMERULAR FILTRATION RATE (test code = GFR) 59 mL/min >=60 Estimated GFR by using Modified MDRD formula.Chronic kidney disease is defined as either kidney damageor GFR <60 mL/min/1.73 m2 for >3 months. CREATININE (test code = CREAT) 1.00 mg/dL 0.55-1.02 N Note change in reference range due to change in reagent. BUN/CREATININE RATIO (test code = BUN/CREA) 10.8 10-20 N CALCIUM (test code = CA) 9.5 mg/dL 8.5-10.1 N [id number] 19:09:00* Test Item Value Reference Range Interpretation Comments TROPONIN-I (test code = TROPI) <0.015 ng/mL 0-0.045 N BASIC METABOLIC [id number] 18:34:00* Test Item Value Reference Range Interpretation Comments SODIUM (test code = NA) 140 mmol/L 136-145 N POTASSIUM (test code = K) 3.5 mmol/L 3.5-5.1 N CHLORIDE (test code = CL) 102.0 mmol/L 98-107 N CARBON DIOXIDE (test code = CO2) mmol/L 21-32 ANION GAP (test code = GAP) 10-20 GLUCOSE (test code = GLU) mg/dL 74-106 BLOOD UREA NITROGEN (test code = BUN) mg/dL 7-18 GLOMERULAR FILTRATION RATE (test code = GFR) mL/min >=60 CREATININE (test code = CREAT) mg/dL 0.55-1.02 BUN/CREATININE RATIO (test code = BUN/CREA) 10-20 CALCIUM (test code = CA) mg/dL 8.5-10.1 [id number] 18:34:00* Test Item Value Reference Range Interpretation Comments TROPONIN-I (test code = TROPI) ng/mL 0-0.045 CBC W/O [id number] 17:14:00* Test Item Value Reference Range Interpretation Comments WHITE BLOOD CELL (test code = WBC) K/mm3 4.5-12.5 RED BLOOD CELL (test code = RBC) mill/mm3 3.7-5.2 HEMOGLOBIN (test code = HGB) 14.2 gram/dL 11.5-15.5 N HEMATOCRIT (test code = HCT) 42.9 % 36.0-46.0 N MEAN CELL VOLUME (test code = MCV) fL 80-98 MEAN CELL HGB (test code = MCH) picogram 27.0-33.0 MEAN CELL HGB CONCETRATION (test code = MCHC) gram/dL 33.0-36. 0 RED CELL DISTRIBUTION WIDTH (test code = RDW) % 11.6-16. 2 PLATELET COUNT (test code = PLT) K/mm3 150-450 MEAN PLATELET VOLUME (test code = MPV) fL 6.7-11.0 CBC W/O [id number] 17:14:00* Test Item Value Reference Range Interpretation Comments WHITE BLOOD CELL (test code = WBC) 5.8 K/mm3 4.5-12.5 N RED BLOOD CELL (test code = RBC) 4.76 mill/mm3 3.7-5.2 N HEMOGLOBIN (test code = HGB) 14.2 gram/dL 11.5-15.5 N HEMATOCRIT (test code = HCT) 42.9 % 36.0-46.0 N MEAN CELL VOLUME (test code = MCV) 90.1 fL 80-98 N MEAN CELL HGB (test code = MCH) 29.8 picogram 27.0-33.0 N MEAN CELL HGB CONCETRATION (test code = MCHC) 33.1 gram/dL 33.0-36. 0 N RED CELL DISTRIBUTION WIDTH (test code = RDW) 13.7 % 11.6-16. 2 N PLATELET COUNT (test code = PLT) 202 K/mm3 150-450 N MEAN PLATELET VOLUME (test code = MPV) 10.8 fL 6.7-11.0 N - XR CHEST 1 [id number] 16:39:00 FAX: Hussain Moon DO [place]: [address]: REG Name: ANDRIY NAVARRO [facility] : [birth year] Age/S: 48/F Romero Galvez Unit #: [id number] Loc: [place] [address] Phys: Hussain Moon DO Acct: [id number] Dis Date: Status: REG ER PHONE #: [phone] Exam Date: 06/27/2019 1637 FAX #: [phone] Reason: CHEST PAIN EXAMS: CPT CODE: [id number] XR CHEST 1 V 75802 REASON FOR EXAM: CHEST PAIN EXAM ORDER DATE: 06/27/2019 4:16 PM Ordering MSandeep: Hussain Moon DO PROCEDURE: - XR CHEST 1 V COMPARISON: FINDINGS: Portable AP frontal view of the chest obtained at 4:37 PM shows clear lungs without evidence of consolidation. There is no evidence of effusion. The heart size is within normal limits. Pulmonary vasculatures are unremarkable. IMPRESSION: No active disease. at 1639 Reported and signed by: Ryan Frost M.D. CC: Hussain Moon DO Technologist: RT JUAREZ(Chong) Trnidalmis Date/Time/By: 06/27/2019 (1635) : By: Rene Orig Print D/T: S: 06/27/2019 (9060) PAGE 1 Signed Report SCR MAMM BILATERAL SHALA CAD [id number] 10:28:30 - SCR MAMM BILATERAL SHALA CAD DIGITALBILATERAL DIGITAL SCREENING MAMMOGRAM 3D/2D WITH CAD: 08/02/2018CLINICAL: Asymptomatic. Digital breast tomosynthesis was performed in addition to routine CC and MLO views. Current mammographic images were evaluated by either a [employer] M-Vu or a [employer] ImageChecker CAD (computer aided detection system). Comparison is made to exams dated 07/02/2017 mammogram, 2016 mammogram - [facility] and 07/05/2015 mammogram - [facility]. The tissue of both breasts is heterogeneously dense. This may lower the sensitivity of mammography. No suspicious mass, archi tectural distortion, malignant type calcification, or lymph node abnormality det ected. Breast architecture is stable compared to prior exams.IMPRESSION: NEGATI VEThere is no mammographic evidence of malignancy. Resume annual screening mammo graphy in one year. Parish mead/penrad:08/05/2018 10:28 :30 Stock Unloader: Alena TRENT, [facility]-FWletter sent : BIRADS 1-2 Normal Mammogram BI-RADS: 1 NegativeGASTRIC [id number] 17:59:00 [place] [address] Patient Name: KEEGAN MARTINEZ MR #: [id number] : 1970 Age/Sex: 47/F Req #: [id number] Adm Physician: Ordered by: ERIN BROOKS MD Report #: [id number] Location: [place] Room/Bed: Procedure: [id number] NM/GASTRIC EMPTYING Exam Date : 05/06/18 Exam Time: 0830 REPORT STATUS: Tracee d Solid-phase gastric emptying study Reason for examination: 47 F with p ost-prandial abdominal pin The protocol used for this study is based on the Consensus Recommendations for Gastric Scintigraphy by the [place] Neurogast[employer] and Motility Society and the Society of Nuclear Medicine. Cli nical information: The patient is not diabetic. The patient has not had prior gastrointestinal surgery. The patient is not on any medications expected to affect gastric motility. The patient has been fasting for at least 6 hours pr ior to this exam. Radiopharmaceutical: Tc-99m sulfur colloid 1 mCi Rep ort: The radiopharmaceutical was added to 1/2 cup egg whites that were then p repared and served with 2 pieces of white bread toasted, 30 grams of jam and 4 ounces of water. The patient took the meal orally without difficulty. Images were obtained of the abdomen in the anterior and posterior projections at 10 minutes post the meal and at 1, 2, 3, and 4 hours. Uptake was determined from the geometric mean of the anterior and posterior counts and the counts were c orrected for decay of the radiolabel. The percent gastric retention of the labeled meal at: 1 hour was 65% (normal 30-90%) 2 hours was 45% (normal < 60%) 3 hours was 28% (normal <30%) 4 hours was 2% (normal <10%) Impression: Normal gastric emptying pattern. The findings do not support the clinical diagnosis of gastroparesis. Signed by: Dr. Carly Gonzales M.D. on 05/06/2018 6:01 PM Dictated By: CARLY GONZALES MD 180 Transcribed By: JUJU on 05/06/181800 COPY TO: ERIN BROOKS MD
[2020-03-05] MEDS ORDERED: KETOROLAC TROMETHAMINE 30 MG/ML VIAL IV STA (23:17)
--- NOTE | 2020-03-05 23:17 | Emergency Department Note ---
History of Present Illnes History of Present Illness Chief Complaint: Abdominal Complaints History of Present Illness This is a 49 year old female, with a history of hypertension, hypothyroidism and depression who presents with right sided abdominal pain that radiates to her back for the past 24 hours, as well as intermittent left upper chest pain for the past 6 days. She describes both pains as sharp and stabbing. The abdominal pain awoke her from sleep yesterday morning. Patient had a normal bowel movement earlier today, and she denies any history of constipation. She denies any history of kidney stones. Her only abdominal surgery's a complete hysterectomy. She denies any associated nausea, vomiting, fever, chills, dysuria, frequency, urgency, or hematuria. Patient denies that eating affects the pain in any way. She states that she had not eaten anything prior to the onset of her abdominal pain. The chest pain has also been constant, but waxes and wanes in intensity. It is not exertional, there is no associated shortness of breath, diaphoresis, dizziness, nausea, vomiting, or palpitations. Patient denies any history of previous similar abdominal pain, though she has had this chest pain previously in May,, when she was seen at [place] and diagnosed with muscular pain. She denies any heavy lifting or pleuritic chest pain. Abdominal pain is located on the right mid, lateral abdomen and radiates to the right mid back area. She denies any history of kidney stones and has had no hematuria. Patient states the abdominal pain awoke her from sleep yesterday morning, and she had not eaten anything prior to the onset of the pain. She denies any associated nausea, vomiting, fever, dysuria, frequency, or urgency. Patient took a dose of Tylenol yesterday without relief of her pain. Early abdominal surgery as a complete hysterectomy. She had a normal bowel movement earlier today. She denies any history of heart disease. Both the chest pain and the abdominal pain are described as sharp, stabbing, and constant. The chest pain is located in the left upper chest, and waxes and wanes in intensity. The chest pain is not exertional, and she has no associated palpitations, diaphoresis, dizziness, nausea, or vomiting. Historian: Patient Arrival Mode: Car Additional Treatment BAT CARRIER: none Radar Engineering Teacher Required: Yes (Aldair Bertrand RN, interpreted) Onset (how long ago): day(s) (2) Location: right side abd, left upper chest Quality: See HPOI Radiation: Reports back (right mid, back) Severity: severe Onset quality: sudden Duration (how long): hour(s) (36) Timing of current episode: constant Progression: unchanged Chronicity: new Context: Denies recent illness, Denies recent surgery, Denies recent travel, Denies trauma/injury, Denies new medications Relieving factors: none Exacerbating factors: none Associated symptoms: Reports chest pain; Denies cough, Denies fever/chills, Denies loss of appetite, Denies nausea/vomiting, Denies shortness of breath, Denies syncope, Denies weakness Treatments prior to arrival: none Past Medical/Family History Physician Review I have reviewed the patient's past medical and family history. Any updates have been documented here. Past Medical History Recent Fever: No Clinical Suspicion of Infectio: No New/Unexplained Change in Ment: No Past Medical History: Hypertension, Hypothyroidism, Depression Past Surgical History: Hysterectomy Social History Smoking Cessation: Never Smoker Alcohol Use: None Any Illegal Drug Use: No TB Exposure/Symptoms: No Physically hurt or threatened: No Family History Family history of heart diseas: No Other Any Pre-Existing Lines (PICC,: No Is patient up to date on immun: Yes Review of Systems Review of Systems Constitutional: Reports no symptoms; Denies chills, Denies fever, Denies malaise, Denies weakness EENTM: Reports no symptoms Cardiovascular: Reports as per HPI, Reports chest pain; Denies edema, Denies palpitations, Denies syncope Respiratory: Denies cough, Denies dyspnea, Denies dyspnea on exertion Gastrointestinal: Reports abdominal pain; Denies constipation, Denies diarrhea, Denies nausea, Denies vomiting Genitourinary: Reports no symptoms Musculoskeletal: Reports no symptoms Integumentary: Reports no symptoms Neurological: Reports no symptoms Psychological: Reports no symptoms Hematological/Lymphatic: Reports no symptoms Review of other systems: All other systems negative Physical Exam Related Data Allergies: Coded Allergies: vancomycin (Verified Allergy, Unknown, 03/05/20) Vital signs reviewed: Yes Physical Exam CONSTITUTIONAL Constitutional: Present well-developed, Present well-nourished, Present obese; Absent distressed, Absent ill appearing HENT HENT: Present normocephalic, Present atraumatic, Present oropharynx clear/moist, Present nose normal HENT L/R: Present left ext ear normal, Present right ext ear normal EYES NECK Neck: Present ROM normal, Present supple PULMONARY Pulmonary: Present effort normal, Present breath sounds normal CARDIOVASCULAR GASTROINTESTINAL Abdominal: Present soft, Present tender, Present other (diffuse Right sided abd ttp, neg Jones's sign, no RLQ rebound or guarding, no right CVAT;); Absent distension, Absent guarding, Absent mass, Absent left CVA tenderness, Absent right CVA tenderness GENITOURINARY Genitourinary: Present exam deferred SKIN Skin: Present warm, Present dry; Absent rash MUSCULOSKELETAL Musculoskeletal: Present ROM normal; Absent edema, Absent tenderness NEUROLOGICAL Neurological: Present alert, Present oriented x 3 PSYCHOLOGICAL Psychological: Present mood/affect normal, Present behavior normal, Present judgement normal Results Laboratory Laboratory CBC - normal BMP - nl Liver - nl cardiacs - nl UA - bl - trace, lysed Lab results reviewed: Yes Imaging Imaging results reviewed: Yes Impressions [place] [address] Patient Name: KEEGAN MARTINEZ MR #: [id number] : 1970 Age/Sex: 49/F Req #: [id number] Adm Physician: Ordered by: MANPREET TANG MD Report #: [id number] Location: [facility] Room/Bed: Procedure: [id number] HOPD/CXR 2 VIEW - HOPD Exam Date: Exam Time: REPORT STATUS: Signed EXAMINATION: CXR 2 VIEW - HOPD INDICATION: ^right sided abdominal pain COMPARISON: None FINDINGS: PA and lateral views TUBES and LINES: None. LUNGS: Lungs are well inflated. There is no evidence of pneumonia or pulmonary edema. PLEURA: No pleural effusion or pneumothorax. HEART AND MEDIASTINUM: The cardiomediastinal silhouette is unremarkable. BONES AND SOFT TISSUES: No acute osseous lesion. Soft tissues are unremarkable. UPPER ABDOMEN: No free air under the diaphragm. IMPRESSION: No acute thoracic abnormality. Signed by: Dr. Phil Chavez MD on 03/06/2020 12:03 AM Dictated By: PHIL CHAVEZ MD 0003 Transcribed By: JUJU on 03/06/202 COPY TO: MANPREET TANG MD~ [place] [address] Patient Name: KEEGAN MARTINEZ MR #: [id number] : 1970 Age/Sex: 49/F Req #: [id number] Adm Physician: Ordered by: MANPREET TANG MD Report #: [id number] Location: [facility] Room/Bed: Procedure: HOPD/CT ABD/PEL WITH CONTRAST-HOPD Exam Date: 03/06/20 Exam Time: 2357 REPORT STATUS: Signed EXAM: CT Abdomen and Pelvis WITH contrast INDICATION: ^right sided abdominal pain ^[id number] ^235 COMPARISON: None. TECHNIQUE: Abdomen and pelvis were scanned utilizing a multidetector helical scanner from the lung base to the pubic symphysis after administration of IV contrast. Coronal and sagittal reformations were obtained. Dose modulation, iterative reconstruction, and/or weight based adjustment of the mA/kV was utilized to reduce the radiation dose to as low as reasonably achievable. Routine protocol was performed. Scan was performed when during portal venous phase. IV CONTRAST: 100 mL of Isovue-370 ORAL CONTRAST: None. COMPLICATIONS: None RADIATION DOSE: Total DLP: 880.71 mGy*cm Estimated effective dose: (DLP x 0.015 x size factor) mSv CTDIvol has been reviewed. It is below the limits set by the Radiation Protocol Committee (RPC). FINDINGS: LINES and TUBES: None. LOWER THORAX: 6 mm posterior left lung base nodule. Otherwise, unremarkable. HEPATOBILIARY: No hepatic mass. 1.2 cm left hepatic lobe hypodensity, probably a cyst. No biliary ductal dilation. GALLBLADDER: No radio-opaque stones or sludge. No wall thickening. SPLEEN: No splenomegaly. Splenules adjacent to the pancreatic tail. PANCREAS: No focal masses or ductal dilatation. ADRENALS: No adrenal nodules KIDNEYS/URETERS: Kidneys enhance symmetrically. No hydronephrosis. No cystic or solid mass lesions. No stones. GI TRACT: No abnormal distention, wall thickening, or evidence of bowel obstruction. Colonic diverticulosis without evidence of diverticulitis. Appendix is normal. PELVIC ORGANS/BLADDER: Unremarkable. LYMPH NODES: No lymphadenopathy. Nonspecific mildly prominent right lower quadrant mesenteric/ileocolic lymph nodes. VESSELS: Unremarkable. PERITONEUM / RETROPERITONEUM: No free air or fluid. BONES: Unremarkable. SOFT TISSUES: Unremarkable. IMPRESSION: 1. No acute inflammatory process in the abdomen/pelvis. 2. Colonic diverticulosis without evidence of diverticulitis. 3. 6 mm posterior left lung base nodule. Recommend follow-up with low-dose chest CT in 6-12 months to ensure stability. Signed by: Dr. Phil Chavez MD on 03/06/2020 12:48 AM Dictated By: PHIL CHAVEZ MD Transcribed By: JUJU on 03/06/2047 COPY TO: MANPREET TANG MD~ Diagnostics Tests Diagnostic test(s) reviewed: Yes Procedures 12 Lead ECG Interpretation ECG Interpretation : ECG: ECG 1 Radar Engineering Teacher: Interpreted by ED physician Date: Mar 05, 2020 Time: 23:34 Prior ECG tracings: not available for review Rhythm: sinus rhythm Rate: normal BPM: 74 QRS axis: normal ST segments normal: Yes T waves normal: Yes Other findings: no other findings Clinical Impression: normal ECG Assessment & Plan Medical Decision Making MDM Take medication, as directed, for possible "Mesenteric Adenitis." See handout provided from [facility]. *Follow-up with your PCP this week, to re-check symptoms and to review results of ER evaluation. You will need a referral in 6-[address] of Chest, to re- evaluate the nodule in the left lower lung. It is VERY important that this is followed up on! -Pt received copies of all diagnostics, including a disc with the CT abd/pelvis, that she will need, when she has a repeat scan in 6-12 months. Recommend a BLAND diet, for the next several days, avoiding FRIED, FATTY, FAST and Spicy foods. Avoid Alcohol. Pt voiced understanding of the plan, and ambulated out of the ED, without assistance and in NAD. Reassessment Reassessment time: 01:05 Reassessment - Pt resting comfortably and she is completely pain free, with NO abdominal pain or chest pain, following the Toradol. - Reviewed results with patient, in detail, via Aldair Bertrand RN, who interpreted. Pt's questions answered. Assessment & Plan Final Impression: (1) Mesenteric adenitis (2) Abdominal pain (3) Atypical chest pain (4) Pulmonary nodule, left Depart Disposition: HOME, SELF-penitentiary Meds Active Scripts Famotidine (FAMOTIDINE) 20 Mg Tab, 20 MG PO DAILY for for gastritis, #30 TAB 0 Refills Prov:MANPREET TANG MD 03/06/20 Naproxen (NAPROXEN) 250 Mg Tablet, 500 MG PO Q12H for abdominal pain, #30 TAB 0 Refills Prov:MANPREET TANG MD 03/06/20 MANPREET TANG MD Mar 05, 2020 23:16
[2020-03-05] MEDS ORDERED: SODIUM CHLORIDE 0.9% 1000ML 1,000 ML IV SCH (23:30)
[2020-03-05] MEDS ORDERED: KETOROLAC TROMETHAMINE 30 MG/ML VIAL ONE (23:36)
[2020-03-05] MEDS ORDERED: SODIUM CHLORIDE 0.9% 1000ML 1,000 ML ONE (23:36)
[2020-03-05] MEDS ORDERED: IOPAMIDOL 370 MG/ML 200 ML INFUS..BTL INJ ONE (23:44)
[2020-03-05] MEDS ORDERED: SODIUM CHLORIDE 0.9% 50ML 50 ML ONE (23:44)
--- NOTE | 2020-03-06 00:07 | Diagnostic Imaging Report ---
EXAMINATION: CXR 2 VIEW - HOPD INDICATION: ^right sided abdominal pain COMPARISON: None FINDINGS: PA and lateral views TUBES and LINES: None. LUNGS: Lungs are well inflated. There is no evidence of pneumonia or pulmonary edema. PLEURA: No pleural effusion or pneumothorax. HEART AND MEDIASTINUM: The cardiomediastinal silhouette is unremarkable. BONES AND SOFT TISSUES: No acute osseous lesion. Soft tissues are unremarkable. UPPER ABDOMEN: No free air under the diaphragm. IMPRESSION: No acute thoracic abnormality. Signed by: Dr. Phil Arevalo MD on 03/06/2020 12:03 AM
--- NOTE | 2020-03-06 00:51 | Diagnostic Imaging Report ---
EXAM: CT Abdomen and Pelvis WITH contrast INDICATION: ^right sided abdominal pain ^[id number] ^[id number] COMPARISON: None. TECHNIQUE: Abdomen and pelvis were scanned utilizing a multidetector helical scanner from the lung base to the pubic symphysis after administration of IV contrast. Coronal and sagittal reformations were obtained. Dose modulation, iterative reconstruction, and/or weight based adjustment of the mA/kV was utilized to reduce the radiation dose to as low as reasonably achievable. Routine protocol was performed. Scan was performed when during portal venous phase. IV CONTRAST: 100 mL of Isovue-370 ORAL CONTRAST: None. COMPLICATIONS: None RADIATION DOSE: Total DLP: 880.71 mGy*cm Estimated effective dose: (DLP x 0.015 x size factor) mSv CTDIvol has been reviewed. It is below the limits set by the Radiation Protocol Committee (RPC). FINDINGS: LINES and TUBES: None. LOWER THORAX: 6 mm posterior left lung base nodule. Otherwise, unremarkable. HEPATOBILIARY: No hepatic mass. 1.2 cm left hepatic lobe hypodensity, probably a cyst. No biliary ductal dilation. GALLBLADDER: No radio-opaque stones or sludge. No wall thickening. SPLEEN: No splenomegaly. Splenules adjacent to the pancreatic tail. PANCREAS: No focal masses or ductal dilatation. ADRENALS: No adrenal nodules KIDNEYS/URETERS: Kidneys enhance symmetrically. No hydronephrosis. No cystic or solid mass lesions. No stones. GI TRACT: No abnormal distention, wall thickening, or evidence of bowel obstruction. Colonic diverticulosis without evidence of diverticulitis. Appendix is normal. PELVIC ORGANS/BLADDER: Unremarkable. LYMPH NODES: No lymphadenopathy. Nonspecific mildly prominent right lower quadrant mesenteric/ileocolic lymph nodes. VESSELS: Unremarkable. PERITONEUM / RETROPERITONEUM: No free air or fluid. BONES: Unremarkable. SOFT TISSUES: Unremarkable. IMPRESSION: 1. No acute inflammatory process in the abdomen/pelvis. 2. Colonic diverticulosis without evidence of diverticulitis. 3. 6 mm posterior left lung base nodule. Recommend follow-up with low-dose chest CT in 6-12 months to ensure stability. Signed by: Dr. Phil Arevalo MD on 03/06/2020 12:48 AM
[2020-03-06] MEDS ORDERED: NAPROXEN250 MG PO (01:10)
[2020-03-06] MEDS ORDERED: FAMOTIDINE20 MG PO (01:11)
== END 2020-03-06 01:48 | disposition home or self-care (01) ==
LOC: FSED 22:57
DX: R10.11 Right upper quadrant pain (principal); I88.0 Nonspecific mesenteric lymphadenitis; R07.89 Other chest pain; R91.8 Other nonspecific abnormal finding of lung field
CPT/HCPCS: 71046; 74177; 80048; 80076; 81003; 82553; 84484; 99284; J1885; J7030; Q9967; 93005

== ENCOUNTER 2022-06-11 21:37 | Emergency (ER) | payer BC, OTHER ==
[~2022-06-11] VITALS: Ht 172.7 cm; Wt 90.7 kg
[~2022-06-11 21:37] MED LIST: FAMOTIDINE20 MG PO; NAPROXEN250 MG PO
[2022-06-11] MEDS ORDERED: ALBUTEROL/IPRATROPIUM 3 ML NEB NEB ONE (22:00)
[2022-06-11] MEDS ORDERED: DEXAMETHASONE SOD PHOS INJ 4 MG/ML SDV IM ONE (22:00)
[2022-06-11] MEDS ORDERED: IPRAT-ALBUT 0.5-3 ML NEB (22:09)
[2022-06-11] MEDS ORDERED: BENZONATATE200 MG PO (22:09)
[2022-06-11] MEDS ORDERED: AZITHROMYCIN250 MG PO (22:09)
[2022-06-11] MEDS ORDERED: ALBUTEROL/IPRATROPIUM 3 ML NEB ONE (22:14)
[2022-06-11] MEDS ORDERED: DEXAMETHASONE SOD PHOS INJ 4 MG/ML SDV ONE (22:14)
== END 2022-06-11 22:21 | disposition home or self-care (01) ==
LOC: FSED 21:46
DX: R05.9 Cough, unspecified (principal); J06.9 Acute upper respiratory infection, unspecified; J45.901 Unspecified asthma with (acute) exacerbation; I10 Essential (primary) hypertension; E03.9 Hypothyroidism, unspecified; F32.A Depression, unspecified
CPT/HCPCS: 99282; J1100

== ENCOUNTER 2024-11-22 00:17 | Emergency (ER) | payer BC ==
[~2024-11-22] VITALS: Ht 167.6 cm; Wt 98.0 kg
[~2024-11-22 00:17] MED LIST changes: +AZITHROMYCIN250 MG PO; +BENZONATATE200 MG PO; +IPRAT-ALBUT 0.5-3 ML NEB
[2024-11-22] MEDS: BACITRACIN ZINC 0.9GM TP ONE (01:17)
[2024-11-22] MEDS: CEPHALEXIN MONOHYDRATE 250 MG CAP PO ONE (01:18)
[2024-11-22] MEDS: TETANUS/DIPHTHERIA TOX ADULT 0.5 ML SYR IM ONE (01:19)
[2024-11-22] MEDS: LIDOCAINE HCL 1% LOCAL INJ 20 ML VIAL INJ ONE (01:21)
[2024-11-22] MEDS ORDERED: CEPHALEXIN500 MG PO (01:26)
[2024-11-22 01:45] VITALS: PULSE 66; RESP 16; TEMP 98.4
[2024-11-22 01:47] VITALS: BP 140/75; PULSE 66; RESP 16; TEMP 98.4; O2SAT 98
== END 2024-11-22 01:49 | disposition home or self-care (01) ==
LOC: FSED 00:24
DX: S61.412A Laceration without foreign body of left hand, initial encounter (principal); W25.XXXA Contact with sharp glass, initial encounter; Y93.G1 Activity, food preparation and clean up; Y92.89 Other specified places as the place of occurrence of the external cause; I10 Essential (primary) hypertension; E03.9 Hypothyroidism, unspecified; J45.909 Unspecified asthma, uncomplicated; F32.A Depression, unspecified
CPT/HCPCS: 90471; 90714; 99284